=== PATIENT | female | born 1945 | race Caucasian/White ===

== ENCOUNTER 2016-10-18 10:20 | Inpatient (IN) | payer MEDICARE ==
[~2016-10-18] VITALS: Ht 154.9 cm; Wt 105.9 kg
[2016-10-18] MEDS ORDERED: OPTIRAY 350 100 ML VIAL HMH IV ONE (10:21)
[2016-10-18] MEDS ORDERED: ONDANSETRON 4 MG VIAL ONE ×2 (12:00→14:07)
[2016-10-18] MEDS ORDERED: SODIUM CHLORIDE 0.9% 1,000 ML ONE (14:07)
[2016-10-18 21:13] VITALS: Ht 154.9 cm; Wt 105.9 kg
[2016-10-18 21:14] VITALS: BP_SYST 130; RESP 18; TEMP 98.1
[2016-10-18] MEDS: FAMOTIDINE 20 MG INJ IV SCH (21:42)
[2016-10-18] MEDS: KCL CR 10 MEQ CAP PO SCH (21:42)
[2016-10-18] MEDS: SOLU-CORTEF 100 MG/2 ML IV SCH ×2 (21:42→23:12)
[2016-10-18] MEDS: SODIUM CHLOR 0.9% W/KCL 20MEQ 1,000 ML IV SCH (21:43)
[2016-10-18] MEDS: Hydrocodone/APAP 10/325 MG TAB PO PRN (21:43)
[2016-10-19] VITALS (7 sets, daily range): BP systolic 118–144; RESP 18–22; TEMP 97.1–99
[2016-10-19] MEDS: ONDANSETRON 4 MG VIAL IV PUSH PRN ×2 (04:15→20:45)
[2016-10-19] MEDS: SODIUM CHLOR 0.9% W/KCL 20MEQ 1,000 ML IV SCH ×3 (05:36→23:34)
[2016-10-19] MEDS ORDERED: MISSING DOSE XX ONE (07:35)
[2016-10-19] MEDS: KCL CR 10 MEQ CAP PO SCH ×3 (08:23→20:43)
[2016-10-19] MEDS: SOLU-CORTEF 100 MG/2 ML IV SCH ×3 (08:24→23:32)
[2016-10-19] MEDS: FAMOTIDINE 20 MG INJ IV SCH ×2 (08:27→20:43)
[2016-10-19] MEDS ORDERED: MAGNESIUM SULF 1 GM/100 ML 100 ML IV ONE (08:55)
[2016-10-19] MEDS: PROMETHAZINE 25 MG/ML VIAL IV PRN ×2 (09:45→14:49)
[2016-10-19] MEDS: METOCLOPRAMIDE 10 MG/2 ML VIAL IV PUSH SCH ×4 (09:46→20:43)
[2016-10-19] MEDS: NEBIVOLOL 10 MG TAB PO SCH (09:50)
[2016-10-19] MEDS: LEVOTHYROXINE 0.025 MG TAB PO SCH (09:50)
[2016-10-19] MEDS: VENLAFAXINE XR 75 MG CAP PO SCH (09:50)
[2016-10-19] MEDS: LORAZEPAM 0.5 MG TAB PO PRN ×2 (10:25→21:04)
[2016-10-19] MEDS: Hydrocodone/APAP 10/325 MG TAB PO PRN (14:12)
[2016-10-20 03:08] VITALS: BP_SYST 128; RESP 18; TEMP 98.6
[2016-10-20] MEDS: LEVOTHYROXINE 0.025 MG TAB PO SCH (05:44)
[2016-10-20] MEDS: METOCLOPRAMIDE 10 MG/2 ML VIAL IV PUSH SCH ×4 (05:48→20:40)
[2016-10-20] MEDS: KCL CR 10 MEQ CAP PO SCH ×3 (08:17→20:42)
[2016-10-20] MEDS: FAMOTIDINE 20 MG INJ IV SCH ×2 (08:17→20:40)
[2016-10-20] MEDS: SOLU-CORTEF 100 MG/2 ML IV SCH ×2 (08:17→16:15)
[2016-10-20] MEDS: NEBIVOLOL 10 MG TAB PO SCH (08:17)
[2016-10-20] MEDS: VENLAFAXINE XR 75 MG CAP PO SCH (08:17)
[2016-10-20] MEDS: LORAZEPAM 0.5 MG TAB PO PRN ×2 (08:31→16:14)
[2016-10-20] MEDS: SODIUM CHLOR 0.9% W/KCL 20MEQ 1,000 ML IV SCH ×2 (08:31→16:38)
[2016-10-20] MEDS: Hydrocodone/APAP 10/325 MG TAB PO PRN ×2 (08:31→16:18)
[2016-10-20 08:51] VITALS: BP_SYST 132; RESP 22; TEMP 97.8
[2016-10-20] MEDS: ONDANSETRON 4 MG VIAL IV PUSH PRN ×2 (09:11→16:38)
[2016-10-20 12:05] VITALS: BP_SYST 132; TEMP 97
[2016-10-20] MEDS: ENOXAPARIN 40 MG/0.4 ML SYR SUBQ SCH (13:50)
[2016-10-20 16:32] VITALS: BP_SYST 130; RESP 20; TEMP 97.3
[2016-10-20 19:11] VITALS: BP_SYST 128; RESP 20; TEMP 98.4
[2016-10-20 23:01] VITALS: BP_SYST 132; RESP 18; TEMP 98.6
[2016-10-21] MEDS: SOLU-CORTEF 100 MG/2 ML IV SCH ×3 (00:34→21:22)
[2016-10-21] MEDS: LORAZEPAM 0.5 MG TAB PO PRN ×3 (00:36→17:19)
[2016-10-21] MEDS: SODIUM CHLOR 0.9% W/KCL 20MEQ 1,000 ML IV SCH (00:36)
[2016-10-21 04:18] VITALS: BP_SYST 148; RESP 22; TEMP 98.2
[2016-10-21] MEDS: METOCLOPRAMIDE 10 MG/2 ML VIAL IV PUSH SCH ×4 (06:43→21:17)
[2016-10-21] MEDS: LEVOTHYROXINE 0.025 MG TAB PO SCH (06:43)
[2016-10-21 07:39] VITALS: BP_SYST 122; RESP 20; TEMP 97.6
[2016-10-21] MEDS: ONDANSETRON 4 MG VIAL IV PUSH PRN ×2 (07:42→17:19)
[2016-10-21] MEDS: FAMOTIDINE 20 MG INJ IV SCH ×2 (09:13→21:20)
[2016-10-21] MEDS: ENOXAPARIN 40 MG/0.4 ML SYR SUBQ SCH (09:14)
[2016-10-21] MEDS: KCL CR 10 MEQ CAP PO SCH (09:14)
[2016-10-21] MEDS: VENLAFAXINE XR 75 MG CAP PO SCH (09:15)
[2016-10-21] MEDS: NEBIVOLOL 10 MG TAB PO SCH (09:15)
[2016-10-21] MEDS: Hydrocodone/APAP 10/325 MG TAB PO PRN ×2 (09:15→17:20)
[2016-10-21] MEDS: PROMETHAZINE 25 MG/ML VIAL IV PRN (09:16)
[2016-10-21] MEDS ORDERED: GLUCAGON 1 MG VIAL IM PRN (11:35)
[2016-10-21] MEDS ORDERED: DEXTROSE 50% SYRINGE 50 ML IV PRN (11:35)
[2016-10-21 11:36] VITALS: BP_SYST 140; RESP 20; TEMP 98.4
[2016-10-21 14:50] VITALS: BP_SYST 158; RESP 20; TEMP 96
[2016-10-21 20:25] VITALS: BP_SYST 120; RESP 20; TEMP 97.1
[2016-10-21 23:06] VITALS: BP_SYST 110; RESP 20; TEMP 98.3
[2016-10-22 02:53] VITALS: BP_SYST 118; RESP 20; TEMP 98.3
[2016-10-22] MEDS: LEVOTHYROXINE 0.025 MG TAB PO SCH (06:32)
[2016-10-22] MEDS: METOCLOPRAMIDE 10 MG/2 ML VIAL IV PUSH SCH (06:35)
[2016-10-22] MEDS: ONDANSETRON 4 MG VIAL IV PUSH PRN (07:53)
[2016-10-22 07:56] VITALS: BP_SYST 142; RESP 20; TEMP 98.1
[2016-10-22] MEDS: LORAZEPAM 0.5 MG TAB PO PRN ×2 (09:34→17:08)
[2016-10-22] MEDS: Hydrocodone/APAP 10/325 MG TAB PO PRN ×2 (09:34→17:08)
[2016-10-22] MEDS: NEBIVOLOL 10 MG TAB PO SCH (09:35)
[2016-10-22] MEDS: VENLAFAXINE XR 75 MG CAP PO SCH (09:35)
[2016-10-22] MEDS: ENOXAPARIN 40 MG/0.4 ML SYR SUBQ SCH (09:37)
[2016-10-22] MEDS: MONTELUKAST 10 MG TAB PO SCH (09:40)
[2016-10-22] MEDS: DEXAMETHASONE 0.5 MG TAB PO SCH (09:40)
[2016-10-22] MEDS: FAMOTIDINE 20 MG TAB PO SCH ×2 (09:40→21:20)
[2016-10-22] MEDS: PROMETHAZINE 25 MG/ML VIAL IV PRN (10:35)
[2016-10-22] MEDS: SOLU-CORTEF 100 MG/2 ML IV SCH (10:45)
[2016-10-22] MEDS: METOCLOPRAMIDE 5 MG TAB PO SCH ×3 (12:02→21:20)
[2016-10-22 12:03] VITALS: BP_SYST 110; RESP 20; TEMP 98.6
[2016-10-22 16:19] VITALS: BP_SYST 130; RESP 20; TEMP 97.2
[2016-10-22 19:13] VITALS: BP_SYST 140; RESP 22; TEMP 98.3
[2016-10-22] MEDS ORDERED: MISSING DOSE XX ONE (20:00)
[2016-10-22 22:49] VITALS: BP_SYST 144; RESP 20; TEMP 97.9
[2016-10-23] MEDS: ONDANSETRON 4 MG VIAL IV PUSH PRN ×2 (02:24→23:55)
[2016-10-23 03:22] VITALS: BP_SYST 122; RESP 22; TEMP 98.4
[2016-10-23] MEDS: METOCLOPRAMIDE 5 MG TAB PO SCH ×4 (06:05→21:26)
[2016-10-23] MEDS: LEVOTHYROXINE 0.025 MG TAB PO SCH (06:05)
[2016-10-23] MEDS: LORAZEPAM 0.5 MG TAB PO PRN ×2 (06:12→14:37)
[2016-10-23] MEDS: Hydrocodone/APAP 10/325 MG TAB PO PRN ×2 (06:13→14:38)
[2016-10-23] MEDS: PROMETHAZINE 25 MG/ML VIAL IV PRN (06:53)
[2016-10-23 07:53] VITALS: BP_SYST 146; RESP 20; TEMP 98.1
[2016-10-23] MEDS: MONTELUKAST 10 MG TAB PO SCH (08:51)
[2016-10-23] MEDS: VENLAFAXINE XR 75 MG CAP PO SCH (08:51)
[2016-10-23] MEDS: NEBIVOLOL 10 MG TAB PO SCH (08:51)
[2016-10-23] MEDS: ENOXAPARIN 40 MG/0.4 ML SYR SUBQ SCH (08:51)
[2016-10-23] MEDS: FAMOTIDINE 20 MG TAB PO SCH (08:51)
[2016-10-23] MEDS: DEXAMETHASONE 0.5 MG TAB PO SCH (08:51)
[2016-10-23] MEDS ORDERED: LOPERAMIDE 2 MG CAPSULE PO PRN (09:25)
[2016-10-23] MEDS: PANTOPRAZOLE 40 MG TAB PO SCH ×2 (11:05→16:26)
[2016-10-23 11:52] VITALS: BP_SYST 120; RESP 20; TEMP 98.3
[2016-10-23 15:40] VITALS: BP_SYST 130; RESP 20; TEMP 98.5
[2016-10-23 19:37] VITALS: BP_SYST 138; RESP 22; TEMP 98.3
[2016-10-23] MEDS ORDERED: MISSING DOSE XX ONE (21:00)
[2016-10-23 23:20] VITALS: BP_SYST 144; RESP 20; TEMP 97.3
[2016-10-24 02:57] VITALS: BP_SYST 146; RESP 22; TEMP 98.3
[2016-10-24] MEDS: PROMETHAZINE 25 MG/ML VIAL IV PRN (03:51)
[2016-10-24] MEDS: LORAZEPAM 0.5 MG TAB PO PRN ×2 (04:00→17:40)
[2016-10-24] MEDS: METOCLOPRAMIDE 5 MG TAB PO SCH ×2 (06:24→16:25)
[2016-10-24] MEDS: LEVOTHYROXINE 0.025 MG TAB PO SCH (06:24)
[2016-10-24] MEDS: PANTOPRAZOLE 40 MG TAB PO SCH ×2 (06:24→17:30)
[2016-10-24 07:39] VITALS: BP_SYST 148; RESP 28; TEMP 98.7
[2016-10-24] MEDS: ONDANSETRON 4 MG VIAL IV PUSH PRN (08:58)
[2016-10-24] MEDS: VENLAFAXINE XR 75 MG CAP PO SCH (09:02)
[2016-10-24] MEDS: MONTELUKAST 10 MG TAB PO SCH (09:02)
[2016-10-24] MEDS: DEXAMETHASONE 0.5 MG TAB PO SCH (09:02)
[2016-10-24] MEDS: ENOXAPARIN 40 MG/0.4 ML SYR SUBQ SCH (09:02)
[2016-10-24] MEDS: NEBIVOLOL 10 MG TAB PO SCH (09:03)
[2016-10-24] MEDS: Hydrocodone/APAP 10/325 MG TAB PO PRN ×2 (09:52→18:47)
[2016-10-24 12:32] VITALS: BP_SYST 144; RESP 16; TEMP 97.9
[2016-10-24] MEDS ORDERED: MISSING DOSE XX ONE (13:35)
[2016-10-24] MEDS: KCL CR 10 MEQ TAB PO SCH ×3 (13:51→20:24)
[2016-10-24] MEDS: AZITHROMYCIN 250 MG TAB PO SCH (13:51)
[2016-10-24 15:25] VITALS: BP_SYST 136; RESP 20; TEMP 98.1
[2016-10-24 19:27] VITALS: BP_SYST 122; RESP 18; TEMP 98.4
[2016-10-25] VITALS (8 sets, daily range): BP systolic 110–146; RESP 20; TEMP 96.3–97.6
[2016-10-25] MEDS: LORAZEPAM 0.5 MG TAB PO PRN (01:42)
[2016-10-25] MEDS: ONDANSETRON 4 MG VIAL IV PUSH PRN ×2 (01:42→12:58)
[2016-10-25] MEDS: Hydrocodone/APAP 10/325 MG TAB PO PRN ×2 (04:20→12:31)
[2016-10-25] MEDS: PANTOPRAZOLE 40 MG TAB PO SCH (07:41)
[2016-10-25] MEDS: METOCLOPRAMIDE 5 MG TAB PO SCH (07:41)
[2016-10-25] MEDS: LEVOTHYROXINE 0.025 MG TAB PO SCH (07:41)
[2016-10-25] MEDS: ENOXAPARIN 40 MG/0.4 ML SYR SUBQ SCH (09:29)
[2016-10-25] MEDS: NEBIVOLOL 10 MG TAB PO SCH (09:29)
[2016-10-25] MEDS: MONTELUKAST 10 MG TAB PO SCH (09:29)
[2016-10-25] MEDS: VENLAFAXINE XR 75 MG CAP PO SCH (09:29)
[2016-10-25] MEDS: DEXAMETHASONE 0.5 MG TAB PO SCH (09:30)
[2016-10-25] MEDS: KCL CR 10 MEQ TAB PO SCH (09:33)
[2016-10-25] MEDS: AZITHROMYCIN 250 MG TAB PO SCH (09:37)
== END 2016-10-25 14:21 | disposition home health service (06) | DRG 372 ==
LOC: ENRESERVTM → ENRESERVDT → ER 10:20 → ENPENDDIS 17:09 → EMR 17:09 → 3NT 19:13
PROVIDERS: ADMIT Internal Medicine; ATTEND Internal Medicine
DX: A04.5 Campylobacter enteritis (principal); Z68.41 Body mass index [BMI] 40.0-44.9, adult; E11.9 Type 2 diabetes mellitus without complications; E86.0 Dehydration; R11.2 Nausea with vomiting, unspecified; F32.9 Major depressive disorder, single episode, unspecified; F41.9 Anxiety disorder, unspecified; E66.01 Morbid (severe) obesity due to excess calories; G25.81 Restless legs syndrome; K21.9 Gastro-esophageal reflux disease without esophagitis; E03.9 Hypothyroidism, unspecified; Z79.4 Long term (current) use of insulin; E55.9 Vitamin D deficiency, unspecified; G47.33 Obstructive sleep apnea (adult) (pediatric); Z79.52 Long term (current) use of systemic steroids
CPT/HCPCS: 36415; 74177; 80053; 81001; 82553; 82947; 83630; 83690; 83735; 84484; 85025; 85652; 87045; 87046; 87088; 87177; 87493; 87804; 93005; 96361; 96374; 96376